=== PATIENT | female | born 1995 | race Two or more races ===

== ENCOUNTER 2016-11-13 15:59 | Emergency (ER) | payer OTHER ==
[~2016-11-13] VITALS: Ht 167.6 cm; Wt 63.7 kg
[2016-11-13 16:07] VITALS: BP 122/79
[2016-11-13] MEDS ORDERED: PROPARACAINE OPHTH 0.5%, 15ML EACHEYE ONE (16:30)
[2016-11-13] MEDS ORDERED: FLUORESCEIN OPHTHALMIC 1 MG STRIP EACHEYE ONE (16:30)
[2016-11-13] MEDS ORDERED: PROPARACAINE OPHTH 0.5%, 15ML ONE (16:48)
[2016-11-13] MEDS ORDERED: FLUORESCEIN OPHTHALMIC 1 MG STRIP ONE (16:48)
[2016-11-13] MEDS ORDERED: HYDROcodone/APAP 5/325 TABLET PO ONE (17:30)
== END 2016-11-13 18:08 | disposition home or self-care (01) ==
LOC: ED 17:55
DX: H18.822 Corneal disorder due to contact lens, left eye (principal); H20.22 Lens-induced iridocyclitis, left eye
CPT/HCPCS: 99283